=== PATIENT | male | born 1995 | race Caucasian/White ===

== ENCOUNTER 2017-07-10 02:02 | Emergency (ER) | payer BC ==
[~2017-07-10] VITALS: Ht 157.5 cm; Wt 61.7 kg
--- NOTE | 2017-07-10 02:05 | NUR ---
Patient to ER bed 6 to gown for evaluation. Side rails up. Report given to Tho LEWIS.
--- NOTE | 2017-07-10 02:06 | NUR ---
Patient AAOx4, ambulatory. Patient states having pain to fifth digit of left hand since earlier this evening; patient states he "fell and attempted to catch himself before falling". Patient states pain scale 5/10 with sharp sensation, pain is non-radiating. Break in skin noted to base of fifth digit of left hand, slight bleeding noted. Bleeding controlled with gauze. Patient denies any other complaints.
[2017-07-10 02:07] VITALS: BP_SYST 125
--- NOTE | 2017-07-10 02:25 | NUR ---
ER Dr. Wells at bedside examining patient.
--- NOTE | 2017-07-10 03:10 | NUR ---
Ortho glass and wrap placed by DEBBIE Ross to left hand. Cap refill brisk to left fingers after placement. Patient tolerated treatment well.
[2017-07-10 03:21] VITALS: BP_SYST 129
--- NOTE | 2017-07-10 03:21 | NUR ---
Patient given written and verbal discharge instructions and verbalizes understanding. ER MD discussed with patient the results and treatment provided. Patient in stable condition. ID arm band removed. Patient educated on pain management and to follow up with PMD. Pain Scale 0/10. Opportunity for questions provided and answered.
== END 2017-07-10 03:21 | disposition home or self-care (01) ==
LOC: SED 02:02
DX: S62.367A Nondisplaced fracture of neck of fifth metacarpal bone, left hand, initial encounter for closed fracture (principal); Z87.39 Personal history of other diseases of the musculoskeletal system and connective tissue; W01.0XXA Fall on same level from slipping, tripping and stumbling without subsequent striking against object, initial encounter; Y93.89 Activity, other specified; Y92.89 Other specified places as the place of occurrence of the external cause; Y99.8 Other external cause status
CPT/HCPCS: 99284